=== PATIENT | female | born 1950 | race Caucasian/White ===

== ENCOUNTER → 2024-05-27 08:15 | Outpatient (REF) | payer OTHER, SELFPAY | LOC: PAVMRI 08:15 | PROVIDERS: ATTENDING PHYSICIAN Psychiatry & Neurology Neurology; FAMILY PHYSICIAN General Practice | DX: R27.0 Ataxia, unspecified (principal) | CPT/HCPCS: 70551 ==

== ENCOUNTER 2025-09-02 19:28 | Inpatient (IN) | payer OTHER, SELFPAY ==
[2025-09-02] VITALS (7 sets, daily range): BP systolic 98–123; BP diastolic 67–84; BMI 26.7
[2025-09-02 17:16] LABS: Hematocrit 39.0 % (37.0-47.0); Hemoglobin 13.1 g/dL (12.0-16.0); Mean Corp Hgb Conc. 33.6 g/dL (33.0-37.0); Mean Corpuscular Volume 97.3 fL (81.0-99.0); Nucleated Red Blood Cells % 0 %; Platelet Count 245 10^3/uL (130-400); Red Cell Dist. Width 13.0 % (11.5-14.5)
[2025-09-02 17:28] LABS: ALT (SGPT) 24 U/L (0-35); AST (SGOT) 32 U/L (14-36); Albumin 4.7 g/dl (3.5-5.0); Alkaline Phosphatase 85 U/L (38-126); Blood Urea Nitrogen 24 mg/dl (7-17); Calcium 9.8 mg/dl (8.4-10.2); Carbon Dioxide 20 mmol/L (22-30); Chloride 109 mmol/L (98-107); Glucose 123 mg/dl (70-99); Potassium 4.3 mmol/L (3.5-5.1); Sodium 137 mmol/L (135-145); Total Protein 7.3 g/dl (6.3-8.2); eGFR > 60.00
[2025-09-02 17:38] LABS: Troponin I 1.560 ng/ml
--- NOTE | 2025-09-02 18:07 | ED.GENMED ---
History of Present Illness
General
Chief Complaint: Cardiac Symptoms
Source: patient and records
Exam Limitations: none
Time Seen by Provider: 09/02/25 17:53
Nursing documentation reviewed up to this point in time: agreed with
History of Present Illness
History of Present Illness:
74-year-old female history of hypertension hypothyroidism migraines tachycardia no history of CAD, followed by cardiology Dr Augustin
Over the night she developed diaphoresis woke up in a sweat, proceeded to have pressure across to her shoulders, into her left arm symptoms are worse with exertion going up stairs, better with rest currently chest pain-free
Past History
Past History
ED Past Medical History: HTN, Hypercholesterolemia, Hypothyroidism and Other (Migraines ); Negative CAD
ED Past Surgical History: None; Negative Cardiac
Social History
Tobacco: Non-smoker
Alcohol: None
Drug: None
Personal:
Living: with family
Employment: Retired
Family History
Family History: CAD; Negative Early CAD
Review of Systems
Review of Systems
All Other Systems: Not applicable
Constitutional: Reports fatigue; Denies fever
Cardiac: Reports chest pain and diaphoresis; Denies palpitations
ABD/GI: Denies abdominal pain, nausea or vomiting
Phy Exam
Physical Exam
Physical Exam:
Physical Exam
General: 74-year-old female nontoxic
Neck: No jaundice
Heart: s1/s2 regular rate and rhythm, no murmur. equal radial pulses.
Lungs: Faint crackles
Abdomen: Nontender
Neuro: alert and oriented. no focal neurological deficits
Skin: no rash
Psychiatric: well kept. interactive and cooperative
Extremities: Nonpitting edema
Course
Orders/Labs/Results
Orders:
Orders
09/02/25 16:54
EKG [Electrocardiogram (*1)] Urgent
Reason for Study: Chest Pain
EKG- Treatment ONCE
09/02/25 16:59
Complete Blood Count/With Diff Urgent
Comprehensive Metabolic Panel Urgent
NT-proBNP Urgent
Comment: ADD ON
Troponin I Urgent
09/02/25 18:00
Heparin 4,000 units IV NOW STA
Heparin 00903 Units/250 ml 25,000 units in 250 ml IV PER PROTOCOL
Weight to be used for heparin protocol in kilograms (kg):: 68.3
Protocol:: Cardiac Tx/Acute Coronary
PTT Goal Range to be used:: PTT 73 to 111 seconds
Order type:: Initial
INITIAL Infusion Dose (UNITS/KG/hr) & then follow protocol:: 12 units/kg/hr
Infusion Dose in UNITS/hr & then follow protocol (UNITS/hr):: 800
INFUSION RATE in mL/hr & then follow protocol (mL/hr):: 8
PTT less than or equal to 64 seconds:: Increase rate by 200 units/hr (+ 2 mL/hr)
PTT 64.1 to 72.9 seconds:: Increase rate by 100 units/hr (+ 1 mL/hr)
PTT 73 to 111 seconds:: Target Range. No change in rate.
PTT 111.1 to 130.9 seconds:: Decrease rate by 100 units/hr (- 1 mL/hr)
PTT 131 to 199.9 seconds:: HOLD for 1 hr. Then decrease rate by 200 units/hr (- 2 mL/hr)
PTT greater than or equal to 200 seconds:: HOLD for 2 hrs & Notify Provider. Then decrease by 200 units/hr (-
2 mL/hr)
Lab follow-up:: Each change, PTT q6h until 2 consecutive are therapeutic. Then PTT
daily.
Nursing to Place Non Medication Order As Directed
Physician Order: PTT 6 hours after initial start of Heparin infusion
09/02/25 18:01
Add On- LAB Urgent
Tests Added?: pBNP
Aspirin 325 mg PO NOW STA
CR Chest Portable - 1 View Urgent
Comment:
Reason For Exam: cp sob
Reason Study Needs to be Portable: Patient Unstable
09/02/25 18:02
Metoprolol [Lopressor] 2.5 mg IV NOW STA
09/02/25 18:11
PTT Urgent
Comment: Obtain baseline before beginning heparin infusion if not already collected
Abnormal Lab Results
09/02/25
16:59
WBC 12.2 H 10^3/uL
(4.8-10.8)
RBC 4.01 L 10^6/uL
(4.20-5.40)
MCH 32.7 H pg
(27.0-31.0)
Abs Immat Gran (auto) 0.1 H 10^3/uL
(0-0.05)
Absolute Neuts (auto) 10.3 H 10^3/uL
(1.4-6.5)
Absolute Lymphs (auto) 1.1 L 10^3/uL
(1.2-3.4)
Absolute Monos (auto) 0.7 H 10^3/uL
(0.1-0.6)
Neutrophils % 84.2 H %
(42.2-75.2)
Lymphocytes % 9.2 L %
(20.5-51.1)
Chloride 109 H mmol/L
(98-107)
Carbon Dioxide 20 L mmol/L
(22-30)
BUN 24 H mg/dl
(7-17)
Glucose 123 H mg/dl
(70-99)
Troponin I 1.560 H* ng/ml
09/02/25 16:59
09/02/25 16:59
Vital Signs
Initial and Last Documented VS:
Initial Vital Signs
Temp Pulse Resp BP Pulse Ox
98.3 F 112 16 106/68 95
09/02/25 16:53 09/02/25 16:53 09/02/25 16:53 09/02/25 16:53 09/02/25 16:53
Last Documented Vital Signs
Temp Pulse Resp BP Pulse Ox
98.3 F 97 16 106/68 96
09/02/25 16:53 09/02/25 18:00 09/02/25 18:00 09/02/25 16:53 09/02/25 18:08
MDM/Problems Addressed
Differential Diagnosis Includes:
ACS, unstable angina less likely PE or dissection
MDM/Problems Addressed:
Chest pain shortness of breath diaphoresis
Chronic conditions affecting care: HTN
Acute Exacerbation and/or Progression of Chronic Illness: HTN
*Radiology
Radiology exam reviewed: preliminary read by ED provider
*Pulse Oximetry
SaO2: 96
Oxygen Mode of Delivery: Room air
Patient hypoxic: no
*EKG
Interpreted by ED Provider?: Yes
Interpretation: abnormal
Comparison EKG: no comparison EKG present
Heart Rate: 102
Rate: tachycardiac
Rhythm: sinus
Ischemia: non-specific ST changes
*Game Developer Interpretation
Rate: tachycardiac
Interpretation: abnormal
Heart Rate: 100
Rhythm: sinus
*Critical Care Note
Total Time (30-74mins, 75-104mins- exclusive of procedures): 32
Update Note
Update Note:
6:10 PM, patient chest pain-free states she only is having symptoms with exertion, message sent to cardiology and hospitalist, started on heparin
ED Attending Note
-
Portions of this chart may have been created with voice recognition software.� Occasional wrong word or��sound alike� substitutions may have occurred due to the inherent limitations of voice recognition software.
Discharge Plan
Departure
Patient Disposition: Admit
Date of Disposition: 09/02/25
Time of Disposition: 18:17
Admit to: IVU
Presentation/result/management discussed w/ accepting MD/DO: Hospitalist
Patient with high blood pressure during this ER visit?: No
Condition: Fair
Discharge Problem:
ACS (acute coronary syndrome)
Prescriptions:
No Action
omeprazole magnesium [Prilosec OTC] 20 MG tablet,delayed release (DR/EC)
20 mg PO DAILY Qty: 20 0RF
acetaminophen [Tylenol] 325 mg Tablet
650 mg PO Q4H PRN (Reason: MILD PAIN)
atorvastatin 20 mg Tablet
20 mg PO DAILY
diltiazem HCl 240 mg Capsule,Extended Release 24 Hr
240 mg PO DAILY
topiramate 25 mg Tablet
75 mg PO BID
Theragen Tablet
1 tab PO DAILY
amitriptyline 50 mg Tablet
75 mg PO QPM
levothyroxine 125 mcg Tablet
125 mcg PO DAILY
estradiol 0.01 % (0.1 mg/gram) Cream
1 appful VAGINAL MOWEFR
aliskiren [Tekturna] 150 mg Tablet
150 mg PO DAILY
aspirin 81 mg Tablet
81 mg PO DAILY
Interventions
Interventions:
*Risk Screen - Suicide Last Done: 09/02/25 17:39
*General Assessment Last Done: 09/02/25 18:05
*Neglect/Abuse Screening Last Done: 09/02/25 17:39
[facility] Fall Risk Assessment Tool Last Done: 09/02/25 17:59
Discharge Date and Time
Print Language: BRUNEIAN
[2025-09-02] MEDS: ASPIRIN 325 MG PO (18:18)
[2025-09-02] MEDS: HEPARIN 4000 UNITS IV (18:19)
[2025-09-02] MEDS: HEPARIN 25000 UNITS/250 ML IV (18:24)
[2025-09-02 18:26] LABS: APTT 28.4 Sec (23.4-35.0)
--- NOTE | 2025-09-02 18:33 | HPS.HSE ---
Family Physician
-
Family Physician:
Chief Complaint
-
Bilateral shoulder pain to chest with diaphoresis
History of Present Illness
74-year-old female complaining of waking up at 430 this morning after attempting to get dressed developed posterior bilateral shoulder blade pain radiating to both arms and chest with diaphoresis. She reports when she attempted to get up and walk
she felt like she was going to pass out. Symptoms persisted today so she kept sitting down. She does recall 2 nights ago waking up in a sweat also. She came to ER for evaluation and was noted to have troponin of 1.56 cardiology was made aware
placement patient on IV heparin drip kept n.p.o. after midnight for cath does have IV contrast dye allergy with tongue swelling. She denies current sore throat, fever, chills, current chest pain, palpitations, cough, shortness of breath, abdominal
pain, nausea, vomiting, diarrhea, urinary symptoms. She has past medical history hypertension, hypothyroidism 2/2 parathyroidectomy, tachycardia, migraines
Medical History
Past Medical History
Past Medical History: Reports Other
Additional Past Medical History:
hypertension
hypothyroidism 2/2 parathyroidectomy
tachycardia
migraines
Past Surgical History: Reports Other
Additional Past Surgical History:
Left meniscus repair
Parathyroidectomy
Social History
Tobacco: Non-smoker
Alcohol: None
Drug: None
Personal:
Living: With Family
Employment: Retired
Family History
Family History: Not pertinent
Allergies / Home Medications
Allergies reflects when Allergies were last updated in [email or web address].
Home Medications with original date entered in [email or web address]
Allergy/Medication List:
Allergies
Allergy/AdvReac Type Severity Reaction Status Date / Time
caffeine (From Excedrin Allergy Shortness Verified 09/02/25 18:04
Migraine) of Breath
carbamazepine (From Tegretol) Allergy Hives Verified 09/02/25 18:04
ciprofloxacin (From Cipro) Allergy Unknown Verified 09/02/25 18:04
ciprofloxacin HCl (From Allergy severe Verified 09/02/25 18:07
Cipro) gastric
distress
Iodinated Contrast Media (IV Allergy Tongue Verified 09/02/25 18:04
Dye, Iodine Containing) Swelling
iodine (Iodine) Allergy Tongue Verified 09/02/25 18:04
Swelling
ioversol (From Optiray 160) Allergy Tongue Verified 09/02/25 18:04
Swelling
prochlorperazine edisylate Allergy Shortness Verified 09/02/25 18:04
(From Compazine) of Breath
prochlorperazine maleate Allergy Shortness Verified 09/02/25 18:04
(From Compazine) of Breath
Home Medications
omeprazole magnesium 20 mg tablet,delayed release (Prilosec OTC) 20 mg PO DAILY ##20 09/13/19
acetaminophen 325 mg tablet (Tylenol) 650 mg PO Q4H PRN MILD PAIN 09/02/25
aliskiren 150 mg tablet (Tekturna) 150 mg PO DAILY 09/02/25
amitriptyline 50 mg tablet 75 mg PO QPM 09/02/25
aspirin 81 mg tablet 81 mg PO DAILY 09/02/25
atorvastatin 20 mg tablet 20 mg PO DAILY 09/02/25
diltiazem HCl 240 mg capsule,24 hr,extended release 240 mg PO DAILY 09/02/25
estradiol 0.01% (0.1 mg/gram) vaginal cream 1 appful vaginal MOWEFR 09/02/25
levothyroxine 125 mcg tablet 125 mcg PO DAILY 09/02/25
therapeutic multivitamin 1 tab PO DAILY 09/02/25
topiramate 25 mg tablet 75 mg PO BID 09/02/25
Review of Systems
-
History Source: Patient and Family (Has been at bedside)
A 12 point ROS was completed and negative except as noted: Yes
Constitutional: Denies Fever or Chills
EENT: Denies Sore Throat or Runny Nose
Respiratory: Denies Cough or Trouble Breathing
Cardiac: Reports Chest Pain, Diaphoresis and Other (Posterior shoulder pain)
Abdomen/GI: Denies Abdominal Pain, Nausea, Vomiting, Diarrhea, Constipated or Bloody Stools
: Denies Dysuria, Frequency, Flank Pain or Incontinence
Musculoskeletal: Denies Joint Pain or Edema
Skin: Denies Itching or Rash
Neurological: Denies Dizzy or Headache
Endocrine: Reports No Symptoms
Hematologic/Lymphatic: Reports No Symptoms
Psych: Reports Calm
Physical Exam
Vital Signs
Vital Signs
Temp Pulse Resp BP Pulse Ox
98.3 F 97 16 106/68 96
09/02/25 16:53 09/02/25 18:00 09/02/25 18:00 09/02/25 16:53 09/02/25 18:08
Physical Exam
General: No Pain, Fever or Chills
HEENT: NormoCephalic, Anicteric, Moist mucous membranes, PERRLA, [place] Conjunctivae and No Ptosis
Respiratory: Clear; No Wheezes, Rales or Rhonchi
Cardiac: S1/S2 and Regular Rhythm; No Murmur, Rub, Gallop or Peripheral Edema
Breast: Deferred by me
GI: Soft, Non Tender, Non Distended, Normal Bowel Sounds and No Hepatosplenomegaly
Rectal: Deferred by Provider
Genito-urinary: Deferred by me
Musculoskeletal: No Clubbing, No Cyanosis and No Edema
Skin: Warm and Dry; No Rash
Neuro: AO x 3, No Motor Deficits, Nonfocal/grossly intact, Cranial Nerves Intact and No Sensory Deficits; No Slurred Speech, Facial Droop, Tremors or Sedated
Psych: Calm
Laboratory Results
-
09/02/25 16:59
09/02/25 16:59
Laboratory Results
Total Bilirubin 0.3 mg/dl (0.2-1.3) 09/02/25 16:59
AST 32 U/L (14-36) 09/02/25 16:59
ALT 24 U/L (0-35) 09/02/25 16:59
Alkaline Phosphatase 85 U/L (38-126) 09/02/25 16:59
Troponin I 1.560 ng/ml H* 09/02/25 16:59
Data Reviewed
-
Lab Data: Labs Reviewed by me
Impression/Plan
-
Impression/plan:
Admit to IVU
#NSTEMI
Allergy to IODINE with minor oropharynx discomfort possible slight tongue swelling 04/2010 treated in ER
-Dr. Yanez made aware of iodine allergy will speak to Railway Track Plant Operator before premedication before procedure
- Troponin 1.56 will trend
-Aspirin 325 mg given in ER, continue aspirin 81 mg daily
-Continue atorvastatin 20 mg daily
-Lopressor 2.5 mg given in ER
- IV heparin drip
- N.p.o. after midnight for cath at 7 AM
- Consult cardiology Dr. Yanez aware
-Check 2D echo
- Check lipid profile, HgbA1c
Will premedicate according to Dr. Schrader with prednisone 40 mg now, Prednisone 40 mg at 1 AM, prednisone 40 mg at 6 AM along with Benadryl 50 mg at 6 AM
EKG: Sinus rhythm first-degree AV block 100 bpm, ST abnormality 2, 3 aVF, QTc B428 MS
Mild hypotension/HTN�benign
BP 106/68
-Hold Tekturna 150 mg daily with hold parameter
- Hold Cardizem 240 mg daily
#History of tachycardia
September 2019 had Holter monitor show 21% time heart rate >100
HOLD Cardizem 240 mg due to mild hypotension daily
#HypoThyroidism status post parathyroidectomy
TSH with free T4 reflex
Continue levothyroxine 125 mcg p.o. daily
#Migraine headaches no current migraine
Continue Topamax 75 mg twice daily
#GERD
Continue Prilosec 20 mg daily
DVT prophylaxis
Patient on IV heparin drip
Full code
--- NOTE | 2025-09-02 19:00 | CON.CAR ---
Consultation
Consultation Request
Date/Time Consultation Requested: 09/02/25
Date/Time Consultation Performed: 09/02/25
Requesting Provider: Dr Lagos
Performing Provider: Dr Yanez (primary Dr Nguyen)
Reason for Consultation: chest pain
Medical History
-
Chief Complaint: chest pain
History of Present Illness:
74-year-old female with a past medical history of inappropriate sinus tachycardia, hypertension, hyperlipidemia, migraines presents for evaluation of chest pain. She was in her usual state of health until 2 nights ago when she woke up diaphoretic
from rest. She states she does have intermittent episodes like this for unclear reasons. Then this morning she began to get ready for the day and noted palpitations which is not unusual for her. But as she began to get more ready she began to
have bilateral heaviness in her shoulders. If she rested it went away. This began to include a mid substernal chest pressure in addition to the heaviness in her shoulders. Again this only happened whenever she got up to get ready. By the time
she was ready to come to the hospital she could not even walk up a flight of stairs without it coming on. At rest she has no symptoms.
Past Medical History
Past Medical History: HTN, Hypercholesterolemia and Other (migraines, trigeminal facial neuralgia)
Past Surgical History: Other (Parathyroidectomy)
Social History
Tobacco: Non-Smoker
Family History
Family History: Reviewed & Not Pertinent
Allergies / Home Medications
Allergy/AdvReac Type Severity Reaction Status Date / Time
caffeine (From Excedrin Allergy Shortness Verified 09/02/25 18:04
Migraine) of Breath
carbamazepine (From Tegretol) Allergy Hives Verified 09/02/25 18:04
ciprofloxacin (From Cipro) Allergy Unknown Verified 09/02/25 18:04
ciprofloxacin HCl (From Allergy severe Verified 09/02/25 18:07
Cipro) gastric
distress
Iodinated Contrast Media (IV Allergy Tongue Verified 09/02/25 18:04
Dye, Iodine Containing) Swelling
iodine (Iodine) Allergy Tongue Verified 09/02/25 18:04
Swelling
ioversol (From Optiray 160) Allergy Tongue Verified 09/02/25 18:04
Swelling
prochlorperazine edisylate Allergy Shortness Verified 09/02/25 18:04
(From Compazine) of Breath
prochlorperazine maleate Allergy Shortness Verified 09/02/25 18:04
(From Compazine) of Breath
�Medication �Instructions �Recorded �Confirmed �Type
omeprazole magnesium 20 mg 20 mg PO DAILY ##20 09/13/19 09/02/25 Rx
tablet,delayed release (Prilosec
OTC)
acetaminophen 325 mg tablet 650 mg PO Q4H PRN MILD PAIN 09/02/25 09/02/25 History
(Tylenol)
aliskiren 150 mg tablet (Tekturna) 150 mg PO DAILY 09/02/25 09/02/25 History
amitriptyline 50 mg tablet 75 mg PO QPM 09/02/25 09/02/25 History
aspirin 81 mg tablet 81 mg PO DAILY 09/02/25 09/02/25 History
atorvastatin 20 mg tablet 20 mg PO DAILY 09/02/25 09/02/25 History
diltiazem HCl 240 mg capsule,24 240 mg PO DAILY 09/02/25 09/02/25 History
hr,extended release
estradiol 0.01% (0.1 mg/gram) 1 appful vaginal MOWEFR 09/02/25 09/02/25 History
vaginal cream
levothyroxine 125 mcg tablet 125 mcg PO DAILY 09/02/25 09/02/25 History
therapeutic multivitamin 1 tab PO DAILY 09/02/25 09/02/25 History
topiramate 25 mg tablet 75 mg PO BID 09/02/25 09/02/25 History
Review of Systems
-
All other systems: Negative unless noted
Physical Exam
Vital Signs
Temp Pulse Resp BP Pulse Ox
98.3 F 97 16 106/68 96
09/02/25 16:53 09/02/25 18:00 09/02/25 18:00 09/02/25 16:53 09/02/25 18:08
Lab Results
09/02/25 16:59
09/02/25 16:59
Troponin I 1.560 ng/ml H* 09/02/25 16:59
Gvk-A-Zwwiygjfkpx Pept 213 pg/ml 09/02/25 16:59
Physical Exam
General: Well Developed and Well Nourished
HEENT: Normocephalic
Respiratory: Clear; Negative Wheezes, Crackles or Rhonchi
Cardiac: S1/S2 and Regular Rhythm; Negative Murmur, Rub or Peripheral Edema
GI: Soft, Non Tender and Non Distended
Genito-urinary: No Costovertebral Tender
Musculoskeletal: No Clubbing, No Cyanosis and No Edema
Neuro: AO x 3
Impression / Plan
-
NSTEMI:
-this is a threat to life
-current cp free
-asa and hep gtt with intensive monitoring
-trend trop, currently 1.56
-serial ecg
-high dose statin, check lipid profile
-echo tomorrow
-bb when able
-npo after midnight for cath tomorrow
-will need pretreatment for contrast allergy
IAST: typicllay on ccb, given nstemi transition to bb
HTN; hold typically therapy, transition to OMT as able
HLD: intensify statin
Data:
Transthoracic echocardiogram (06/06/2023): LVEF 60-65% no regional wall motion abnormalities, normal diastolic function; aortic sclerosis without stenosis; trace tricuspid regurgitation, estimated PAP 24 mmHg.
Lexiscan Nuclear Stress Test (06/08/2023): Normal sestamibi perfusion imaging.
Data Reviewed
-
EKG: Tracing Personally Visualized and interpreted (NSR with primary av conduction delay. Nonspecific st wave change, no change from prior)
Radiology: Image Personally Visualized and interpreted (no pulm edema, no effusion normal heart size)
Labs: Labs Reviewed by me (trop 1.56, probnp 213)
--- NOTE | 2025-09-02 19:33 | W.PN.UPDATE ---
Update Note
Progress Note Update
This is an addendum to H&P written by PATIENT ACCOUNT SPECIALIST Jihan Iyer
I saw and examined the patient.
The PATIENT ACCOUNT SPECIALIST's note was reviewed and I agree with the note.
Comment:
Ms. Nivia Chacko is a 74 yo woman with hx essential HTN, HLD, migraines presents to the ER with bilateral shoulder pain and diaphoresis while getting dressed this morning. Similar episode 2 nights ago.
Triage VS: T 98.2, P 112, RR 16, BP 106/68, SpO2 95%
LABS: WBC 12.2, Hg 13.1, PLT 245, Na 137, K+ 4.3, CO2 20, BUn 24, Cr 0.8, Glucose 123
Troponin 1.56
EKG: NSR @ 100, poor R wave progression new from prior, mild t wave flattening
NSTEMI
-admit to IVU
-continue IV heparin gtt
-s/p asa 325mg, continue 81mg PO QD
-increase NAVIGATION TEACHER Statin dosing
-appreciate Cardiology
-NPO after MN for cardiac cath
-TTE
-follow up Lipid panel, A1c
-*patient with contrast allergy. working with Cardiology to discuss timing of steroid prophylaxis administratoin
Hx inappropriate sinus tachycardia
-hold Diltiazem, start Metoprolol if BP tolerates
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
Remainder of plan per PATIENT ACCOUNT SPECIALIST note
76 minutes spent on patient care
[2025-09-02 20:52] LABS: Troponin I 2.290 ng/ml
[2025-09-02] MEDS: DELTASONE 40 MG PO (21:29)
[2025-09-02] MEDS: TOPAMAX 75 MG PO (22:06)
--- NOTE | 2025-09-02 23:28 | PTCARENOTE ---
Rec'd pt as admission from ED. Pt AAO*3, VSS, and SR with 1st hb on tele monitor. pt with heparin infusion as ordered. Pt denies any pain or discomfort. Pt NPO after midnight and now resting with call vuong in reach. See MAR and flowchart for
full pt care and assessment.
[2025-09-03] VITALS (23 sets, daily range): BP systolic 84–108; BP diastolic 54–71; PULSE 108; O2SAT 98; BMI 26.7
[2025-09-03 01:35] LABS: Hematocrit 37.6 % (37.0-47.0); Hemoglobin 12.8 g/dL (12.0-16.0); Mean Corp Hgb Conc. 34.0 g/dL (33.0-37.0); Mean Corpuscular Volume 93.5 fL (81.0-99.0); Nucleated Red Blood Cells % 0 %; Platelet Count 224 10^3/uL (130-400); Red Cell Dist. Width 13.2 % (11.5-14.5)
[2025-09-03] MEDS: DELTASONE 40 MG PO ×2 (01:41→05:54)
[2025-09-03 01:48] LABS: APTT 81.6 Sec (23.4-35.0)
[2025-09-03 01:58] LABS: ALT (SGPT) 25 U/L (0-35); AST (SGOT) 41 U/L (14-36); Albumin 4.2 g/dl (3.5-5.0); Alkaline Phosphatase 91 U/L (38-126); Blood Urea Nitrogen 24 mg/dl (7-17); Calcium 9.3 mg/dl (8.4-10.2); Carbon Dioxide 16 mmol/L (22-30); Chloride 112 mmol/L (98-107); Estimated Creatinine Clearance 64 ml/min; Glucose 144 mg/dl (70-99); Magnesium 2.2 mg/dl (1.6-2.3); Potassium 4.0 mmol/L (3.5-5.1); Sodium 138 mmol/L (135-145); Total Protein 6.7 g/dl (6.3-8.2); Very Low Density Lipoprotein 7 mg/dl (0-30); eGFR > 60.00
[2025-09-03 02:07] LABS: HDL Cholesterol 132 mg/dl; LDL Cholesterol, Calculated 52 mg/dl
[2025-09-03 02:11] LABS: Troponin I 2.100 ng/ml
[2025-09-03] MEDS: SYNTHROID 125 MCG PO (05:54)
[2025-09-03] MEDS: BENADRYL 50 MG PO (05:54)
--- NOTE | 2025-09-03 07:20 | PTCARENOTE ---
Report called to the feed mill lab technician
--- NOTE | 2025-09-03 07:58 | ITS.CL.PN ---
Clothes Ironer - Procedure Note
Procedure
Procedure Note:
CARDIAC CATHETERIZATION REPORT
Date of Procedure: 09/03/2025
Referring: Dr. Ivonne Yanez MD
Indication: NSTEMI
PROCEDURE(S)
1. left heart catheterization
2. coronary angiography
ACCESS: 6F right radial artery (closure: radial band)
CATHETERS
1. 6F JR4
2. 6F JL3.5
MODERATE SEDATION: 25 minutes of moderate sedation was utilized. An independent medical services assistant was present to assist with and help manage the patient's level of consciousness and physiologic status.
HEMODYNAMIC DATA
LV 121/15 (EDP 20) mmHg
AO 94/64 (mean 76) mmHg
CORONARY ANGIOGRAPHY
Dominance: right
LM: large, normal
LAD: large vessel giving rise to a small D1/ramus and large branching D2. There are trivial luminal irregularities only including mild ostial narrowing of the small D1.
LCx: gives rise to a very early branching large OM1 with the continuation of the true LCx giving off a small LPL branch. The ostial LCx has an angulated takeoff from the LM and there is ~30% ostial narrowing with otherwise trivial luminal
irregularities only.
RCA: large vessel giving rise to a large RPDA, small RPL1, and moderate caliber RPL2. There is no epicardial CAD.
RADIATION: dose 181 mGy; DAP 14 Gy*cm2; fluoroscopy time 2.3 min
CONCLUSIONS
1. non obstructive coronary artery disease in a right dominant system
2. moderate pullback gradient across the aortic valve (~27 mmHg) with moderately elevated LV filling pressure (LVEDP 20 mmHg)
RECOMMENDATIONS
1. TTE to elucidate etiology of pullback gradient and inform possible explanation for [place]. If not clear etiology identified from TTE, consider outpatient cMRI.
2. primary prevention of coronary artery disease with high intensity statin. Reasonable to continue baby ASA for now pending above workup.
3. start low dose metoprolol, further GDMT pending TTE
Copy to: Dr. Aidan Nguyen MD (otr tanker truck driver); Dr. Gabbi Gan DO (PCP)
Signed: Ramiro Lovett MD, PhD
--- NOTE | 2025-09-03 08:17 | PTCARENOTE ---
Patient received from the labeling strategist. Right radial band intact with 9 cc of air. POX 97% on right hand. VSS, denies pain, NSR 90's, call vuong in reach
--- NOTE | 2025-09-03 09:10 | CM ---
Reviewed chart. Met with Mrs. Chacko to review discharge plans. She states prior to admission she resides with her spouse in a two story home with one step to enter. She states she has a full flight of steps to get to bedroom/full bathroom. She
states she has a powder room on the first floor. She states prior to admission she is independent with ambulation in the home and uses a walker in the community. She states she is independent with adls. She states she has a walker at home. She
states she has prescription plan and uses [facility]. Medical work-up in progress The discharge plan is to return home with her spouse when medically stable.
[2025-09-03 09:44] LABS: Glycohemoglobin (HgbA1c) 5.8 % (4.0-5.9)
--- NOTE | 2025-09-03 10:14 | CARDSERVDEF ---
Echocardiogram with Definity completed after protocol screening completed. Allergies verified.
Patent IV site: _Left arm accessory cephalic site clear____
IV site flushed with 0.9% NaCl pre and post administration.
Diluted bolus method utilized to enhance visualization of ventricular rogers.
Total volume given: __2.5__ mL
Patient tolerated all procedures well without complications.
[2025-09-03] MEDS: TOPAMAX 75 MG PO ×2 (10:44→21:20)
[2025-09-03] MEDS: PROTONIX 40 MG PO (10:45)
[2025-09-03] MEDS: LOW STRENGTH ASPIRIN 81 MG PO (10:45)
[2025-09-03] MEDS: THERAGRAN 1 TABLET PO (10:45)
[2025-09-03] MEDS: LIPITOR 80 MG PO (10:45)
--- NOTE | 2025-09-03 11:04 | W.PN.HOSP.TC ---
Today's Communication/Plan
-
see a/p
Assessment / Plan
Assessment / Plan
Physical Exam
General: No Pain, Fever or Chills
HEENT: NormoCephalic, Anicteric, Moist mucous membranes, PERRLA
Respiratory: Clear; No Wheezes, Rales or Rhonchi
Cardiac: S1/S2 and Regular Rhythm; No Murmur, Rub, Gallop or Peripheral Edema
GI: Soft, Non Tender, Non Distended, Normal Bowel Sounds and No Hepatosplenomegaly
Musculoskeletal: No Clubbing, No Cyanosis and No Edema
Skin: Warm and Dry; No Rash
Neuro: AO x 3 conversant coherent
Psych: Calm
74F HTN HLD Migraines here for evaluation CP concern for possible NSTEMI
NSTEMI
nonobstructive CAD
Acute HFrEF, Takotsubo cardiomyopathy
-IVU admit
-s/p asa 325mg, continue 81mg PO QD
-statin
-appreciate Cardiology
-s/p cardiac cath 09/03, received pretreatment for contrast allergy, nonobstructive CAD noted, started on low dose Metoprolol
-heparin gtt completed
-troponin trended to peak 2.29
-ECHO appreciated EF 25-30% mild/mod MR TR
-Lipid panel, A1c wnl
Mild hypotension/hx HTN
History of tachycardia
-Hold Tekturna 150 mg daily with hold parameter
- Hold Cardizem 240 mg daily
#HypoThyroidism status post parathyroidectomy
Continue levothyroxine 125 mcg p.o. daily
#Migraine headaches no current migraine
Continue Topamax 75 mg twice daily
#GERD
Continue Prilosec 20 mg daily
DVT prophylaxis
Full code
Discussed with patient and patient's Clark
I spent a total of 50 minutes with the patient or on the floor. More than 50% of this time involved counseling and coordination of care.
Anticipated Discharge: 24 - 48 hours
Subjective/Interval History
-
Date of Service: September 03, 2025
Seen and examined at bedside in no acute distress, resting comfortably in bed. Overall reports feeling well s/p cath. Clark present during evaluation.
Objective Data
-
Labs:
Laboratory Results
09/03/25 09/03/25
01:21 08:00
WBC 12.3 H
Hgb 12.8
Hct 37.6
Plt Count 224
APTT 81.6 H Pending
Sodium 138
Potassium 4.0
Chloride 112 H
Carbon Dioxide 16 L
BUN 24 H
Creatinine 0.7
Glucose 144 H
Calcium 9.3
Total Bilirubin 0.3
AST 41 H
ALT 25
Alkaline Phosphatase 91
Vital Signs:
Vital Signs
Temp Pulse Resp BP Pulse Ox
98.3 F 96 15 95/68 96
09/03/25 08:12 09/03/25 10:00 09/03/25 08:12 09/03/25 10:00 09/03/25 10:00
I&O
09/02/25 09/03/25 09/04/25
06:59 06:59 06:59
Intake Total 500 / 500
Balance 500 / 500
[2025-09-03] MEDS: TOPROL XL 25 MG PO (11:24)
--- NOTE | 2025-09-03 11:28 | PTCARENOTE ---
Patient right radial band removed. BP 98/64, HR 107. Toprol XL 25 mg PO given as ordered
--- NOTE | 2025-09-03 18:35 | ITS.CL.CATH ---
Tow Operator - Catheterization
Cardiac Catheterization
Procedure Report:
LEFT AND RIGHT HEART CATHETERIZATION
Date of Procedure: September 03, 2025
Referring: Rick Roberts MD
PROCEDURES:
1. Left heart catheterization, coronary angiogram.
2. Moderate sedation.
3. Right heart catheterization.
INDICATION: Severe MR on echo with ongoing GERMAN and LE edema
ACCESS: Right radial artery, 6Fr. sheath, under US guidance.
HEMODYNAMICS : (mmHg)
RA (m) : 8, with V waves to 14mmHG
RV (s/d,m) : 42/7, 13
PA (s/d, m) : 34/11, 22
PCWP (m) : 16
PA saturation: 73.2% on room air
AO saturation: 93.6% on room air
RA saturation: 72.5% on room air
Cardiac Output : 7.52 L/min by Ramana calculation
Cardiac Index : 4.21 L/min/m-2 by Ramana calculation
Systemic vascular resistance: 1116 dsc^(-5)
Pulmonary vascular resistance: 1.06 mckeon unit
AO (s/d) : 170/71
LVEDP : 16
No significant gradient across the aortic valve to suggest aortic stenosis.
CORONARY FINDINGS
Dominance: Right
Left Main Trunk (LMT): Large caliber vessel that gives rise to the LAD and LCx branches and is free of angiographic disease.
Left Anterior Descending Artery (LAD): Large caliber vessel that gives off * major diagonal branches as it courses along the anterior inter-ventricular groove before wrapping around the cardiac apex. The LAD and its branches are free of
angiographic disease.
Left Circumflex Artery (LCx): Large caliber vessel that gives off * major obtuse marginal (OM) branches as it courses along the atrio-ventricular (AV) groove. The LCx and its branches are free of angiographic disease.
Right Coronary Artery (RCA): Large caliber dominant vessel that gives rise to the posterior descending artery (RPDA) and postero-lateral ventricular (RPLV) branches distally. The RCA and its branches are free of angiographic disease.
SEDATION: 47 minutes of procedural sedation was utilized. IV Midazolam and IV Fentanyl were administered. An independent medical leader was present to assist with and help manage the patient's level of consciousness and physiologic status.
RADIATION SUMMARY: Fluoro Time (min): 2.7, Dose (mGy): 142.75, DAP (Gy.cm2) : 11.1
Closure Device: There were no immediate intra-procedural complications. The sheath was pulled in the earthmoving labourer and a vascular-band applied to the right wrist for radial artery hemostasis using the patent hemostasis technique.
CONCLUSIONS
1. No obstructive coronary artery disease.
2. Mildly elevated right left-sided filling pressures with high cardiac output.
RECOMMENDATIONS
1. Wean radial band per protocol. Monitor right hand perfusion and for bleeding from the radial site following removal of the vascular-band following trans-radial access.
2. Continue aggressive medical therapy and risk factor modification for secondary CAD prevention.
3. Hydrate with normal saline to mitigate the risk of contrast-induced acute kidney injury.
4. Inpatient admission for workup of volume overload with plan to repeat echocardiogram given symptoms and lower extremity edema's appear to be slightly out of proportion to be explained by invasive hemodynamics to make sure we rule out all
potential noncardiac etiologies before consideration of mitral valve intervention.
Hermelinda Milner MD, FAC, [facility]
Copy to: Rick Roberts MD
[2025-09-03] MEDS: ELAVIL 75 MG PO (19:18)
--- NOTE | 2025-09-03 22:58 | PTCARENOTE ---
Received pt at change of shift resting in bed. SR w/ 1st degree on tele, HR 80's-90's. pt denies any CP or SOB at this time. R radial site C/D/I, no bleeding or hematoma noted at this time. Educated pt on activity restrictions on right wrist, pt
verbalizes understanding. Updated pt on plan of care. Encouraged pt to call RN for assistance ambulating and/or w/ any questions/concerns. Call vuong within reach.
[2025-09-04] VITALS (10 sets, daily range): BP systolic 90–105; BP diastolic 60–70; PULSE 87; O2SAT 97; BMI 26.8
[2025-09-04 04:22] LABS: Hematocrit 37.0 % (37.0-47.0); Hemoglobin 12.6 g/dL (12.0-16.0); Mean Corp Hgb Conc. 34.1 g/dL (33.0-37.0); Mean Corpuscular Volume 95.6 fL (81.0-99.0); Nucleated Red Blood Cells % 0 %; Platelet Count 203 10^3/uL (130-400); Red Cell Dist. Width 13.6 % (11.5-14.5)
[2025-09-04 05:04] LABS: Blood Urea Nitrogen 26 mg/dl (7-17); Calcium 9.1 mg/dl (8.4-10.2); Carbon Dioxide 20 mmol/L (22-30); Chloride 112 mmol/L (98-107); Estimated Creatinine Clearance 65 ml/min; Glucose 105 mg/dl (70-99); Sodium 138 mmol/L (135-145); eGFR > 60.00
[2025-09-04 05:14] LABS: Potassium 4.0 mmol/L (3.5-5.1)
[2025-09-04] MEDS: SYNTHROID 125 MCG PO (05:22)
--- NOTE | 2025-09-04 07:28 | W.PN.HOSP.TC ---
Today's Communication/Plan
-
Cardiac medications optimization as per Cardio
Assessment / Plan
Assessment / Plan
Physical Exam
General: No Pain, Fever or Chills
HEENT: NormoCephalic, Anicteric, Moist mucous membranes, PERRLA
Respiratory: Clear; No Wheezes, Rales or Rhonchi
Cardiac: S1/S2 and Regular Rhythm; No Murmur, Rub, Gallop or Peripheral Edema
GI: Soft, Non Tender, Non Distended, Normal Bowel Sounds and No Hepatosplenomegaly
Musculoskeletal: No Clubbing, No Cyanosis and No Edema
Skin: Warm and Dry; No Rash
Neuro: AO x 3 conversant coherent
Psych: Calm
74F HTN HLD Migraines here for evaluation CP concern for possible NSTEMI ruled out, found to have Takotsubo cardiomyopathy.
nonobstructive CAD
Acute HFrEF, Takotsubo cardiomyopathy
Troponin elevation 2/2 nonischemic myocardial injury
-IVU admit
-s/p asa 325mg, continue 81mg PO QD
-statin
-Cardio eval appreciated
-s/p cardiac cath 09/03, received pretreatment for contrast allergy, nonobstructive CAD noted, started on low dose Metoprolol, Lasix 20 mg daily, Farxiga 10 mg daily
-heparin gtt completed
-troponin trended to peak 2.29
-ECHO appreciated EF 25-30% mild/mod MR TR
-Lipid panel, A1c wnl
Mild hypotension/hx HTN
History of tachycardia
-Hold Tekturna 150 mg daily Cardizem 240 mg daily
-started on Metoprolol and Lasix as above
#HypoThyroidism status post parathyroidectomy
Continue levothyroxine 125 mcg p.o. daily
#Migraine headaches no current migraine
Continue Topamax 75 mg twice daily
#GERD
Continue Prilosec 20 mg daily
DVT prophylaxis
Full code
I spent a total of 40 minutes with the patient or on the floor. More than 50% of this time involved counseling and coordination of care.
Anticipated Discharge: 24 - 48 hours
Subjective/Interval History
-
Date of Service: September 04, 2025
no acute distress sitting up comfortably in bed. Overall reports feeling well. Denies new acute issues.
Objective Data
-
Labs:
Laboratory Results
09/04/25
04:09
WBC 8.6
Hgb 12.6
Hct 37.0
Plt Count 203
Sodium 138
Potassium 4.0
Chloride 112 H
Carbon Dioxide 20 L
BUN 26 H
Creatinine 0.7
Glucose 105 H
Calcium 9.1
Vital Signs:
Vital Signs
Temp Pulse Resp BP Pulse Ox
98.7 F 79 18 101/65 97
09/04/25 04:05 09/04/25 05:00 09/04/25 04:05 09/04/25 04:05 09/04/25 04:05
I&O
09/03/25 09/04/25 09/05/25
06:59 06:59 06:59
Intake Total 1220 / 1220
Balance 1220 / 1220
--- NOTE | 2025-09-04 08:50 | W.PN.CD ---
Today's Communication / Plan
-
- Takotsubo cardiomyopathy (EF 25-30%).
- Troponin elevation is secondary to acute nonischemic myocardial injury in the setting of Takotsubo cardiomyopathy.
- GDMT will be limited by low blood pressure.
- Patient with mild volume overload on examination; will see if she can tolerate Lasix 20 mg PO daily--if not daily, perhaps 20 mg M//.
- Patient has been changed from diltiazem to Toprol-XL 25 mg daily; continue.
- Will start Farxiga 10 mg daily.
- Unable to place on ARNI/ACEi or spironolactone.
- Cholesterol is well-controlled; will reduce atorvastatin back to 20 mg daily.
Impression / Plan
-
74-year-old female (known to Dr. Nguyen, her primary Oxygen Equipment Technician) with inappropriate sinus tachycardia, hypertension, hyperlipidemia, hypothyroidism, and migraines presents for evaluation of chest pain. Cardiac enzymes are mildly elevated.
Echocardiogram revealed an LVEF of 25-30%, and findings consistent with Takotsubo cardiomyopathy. Cardiac catheterization subsequently revealed no obstructive coronary artery disease.
Takotsubo cardiomyopathy (EF 25-30%):
- Troponin elevation is secondary to acute nonischemic myocardial injury in the setting of Takotsubo cardiomyopathy.
- GDMT will be limited by low blood pressure.
- Patient with mild volume overload on examination; will see if she can tolerate Lasix 20 mg PO daily--if not daily, perhaps 20 mg M/W/.
- Patient has been changed from diltiazem to Toprol-XL 25 mg daily; continue.
- Will start Farxiga 10 mg daily.
- Unable to place on ARNI/ACEi or spironolactone.
Mild/moderate MR and TR:
- Will follow clinically over time for for progression.
- Lasix as above for now.
IAST: Transitioned from CCB to BB.
HTN: Blood pressure is low; management as documented above.
HLD: Cholesterol is well-controlled; will reduce atorvastatin back to 20 mg daily.
Data:
Transthoracic echocardiogram (06/06/2023): LVEF 60-65% no regional wall motion abnormalities, normal diastolic function; aortic sclerosis without stenosis; trace tricuspid regurgitation, estimated PAP 24 mmHg.
Lexiscan Nuclear Stress Test (06/08/2023): Normal sestamibi perfusion imaging.
Physical Exam
Vital Signs/Labs
Vital Signs
Temp Pulse Resp BP Pulse Ox
98.9 F 84 17 97/67 96
09/04/25 07:38 09/04/25 08:00 09/04/25 07:38 09/04/25 07:16 09/04/25 07:38
09/03/25 09/04/25 09/05/25
06:59 06:59 06:59
Actual Weight 68.4 kg 68.7 kg
09/04/25 04:09
09/04/25 04:09
APTT Cancelled 09/03/25 08:00
Magnesium 2.2 mg/dl (1.6-2.3) 09/03/25 01:21
Triglycerides 38 mg/dl (10-149) 09/03/25 01:21
LDL Cholesterol, Calc 52 mg/dl 09/03/25 01:21
VLDL Cholesterol, Calc 7 mg/dl (0-30) 09/03/25 01:21
HDL Cholesterol 132 mg/dl 09/03/25 01:21
09/02/25
16:59
[id number] Pept 213
LAB Results
09/02/25 09/02/25 09/03/25
16:59 20:09 01:21
Troponin I 1.560 H* 2.290 H* D 2.100 H*
Physical Exam
Constitutional: No acute distress and Comfortable
EENT: Anicteric
Cardiovascular: Rhythm & rate is regular, Pedal edema present (Trace), Systolic murmur present (Soft 2/6) and S1S2 is normal
Respiratory: Respiratory effort normal and Rhonchi Present (Mild bibasilar)
GI: Soft and Non tender
Neuro/Psych: AO x 3
Other: Skin (Warm, dry, intact)
Data Reviewed
-
Date of Service: September 04, 2025
EKG: Tracing Personally Visualized and interpreted (Telemetry: Sinus rhythm)
Echo: Report Reviewed by me (EF 25-30%, Takotsubo cardiomyopathy; mild to moderate MR/TR.)
X-Ray/CT/US/MRI/NUC/PET: Report Reviewed by me (Cardiac catheterization 09/03/2025: No obstructive CAD.)
Labs: Labs Reviewed by me
--- NOTE | 2025-09-04 09:21 | PTCARENOTE ---
Assumed care of pt from prev nsg shift; Pt AAOx3 & denies CP or SOB. Pt's VSS w/HR in the 80's and BP 97/67 this AM. Pt is SR on telemetry monitoring. Pt w/R radial site w/dressing C/D/I & no signs or symptoms of bleeding or hematoma. Pt w/call vuong
within reach & no addtl needs at this time. Plan of care ongoing.
[2025-09-04] MEDS: LOW STRENGTH ASPIRIN 81 MG PO (09:52)
[2025-09-04] MEDS: THERAGRAN 1 TABLET PO (09:53)
[2025-09-04] MEDS: TOPROL XL 25 MG PO (09:53)
[2025-09-04] MEDS: TOPAMAX 75 MG PO ×2 (09:53→19:49)
[2025-09-04] MEDS: LIPITOR 80 MG PO (09:53)
[2025-09-04] MEDS: PROTONIX 40 MG PO (09:53)
[2025-09-04] MEDS: FARXIGA 10 MG PO (09:55)
--- NOTE | 2025-09-04 10:18 | CM ---
Reviewed chart. Met with Mrs. Chacko to review discharge plans. She states she is feeling well and maybe able to go home soon. Telephone call to her insurance to check on co-pay for Farxiga 10 mg po daily. Her co-pay is $140.00 a month. She is
aware that she will have a deductible that has to be met next year. She is also aware the Farxiga will go generic next December. Reviewed Good Rx coupon if the generic is not on her formulary plan for next year. She is agreeable to the co-pay. Prior
to admission she resides with her spouse in a two story home with one step to enter. She has a full flight of steps to get to bedroom/full bathroom. She has a powder room on the first floor. Prior to admission she is independent with ambulation in
the home and uses a walker in the community. She is independent with adls. She has a walker at home. She has prescription plan and uses [facility]. Medical work-up in progress The discharge plan is to return home with her spouse when
medically stable.
[2025-09-04] MEDS: ELAVIL 75 MG PO (18:25)
[2025-09-04] MEDS: LIPITOR 20 MG PO (18:25)
[2025-09-05 04:16] VITALS: BP 115/75
[2025-09-05] MEDS: TYLENOL 650 MG PO (04:20)
[2025-09-05] MEDS: SYNTHROID 125 MCG PO (04:20)
[2025-09-05 05:41] LABS: Hematocrit 39.2 % (37.0-47.0); Hemoglobin 13.1 g/dL (12.0-16.0); Mean Corp Hgb Conc. 33.4 g/dL (33.0-37.0); Mean Corpuscular Volume 96.8 fL (81.0-99.0); Nucleated Red Blood Cells % 0 %; Platelet Count 174 10^3/uL (130-400); Red Cell Dist. Width 13.6 % (11.5-14.5)
[2025-09-05 06:00] VITALS: BMI 26.7
--- NOTE | 2025-09-05 06:08 | PTCARENOTE ---
Pt NSR on monitor VSS Denies CP. Tylenol PRN given for COONEY. Pt ambulates with x1 assist and RW
--- NOTE | 2025-09-05 07:47 | W.PN.HOSP.TC ---
Today's Communication/Plan
-
discharge
Assessment / Plan
Assessment / Plan
Physical Exam
General: No Pain, Fever or Chills
HEENT: NormoCephalic, Anicteric, Moist mucous membranes, PERRLA
Respiratory: Clear; No Wheezes, Rales or Rhonchi
Cardiac: S1/S2 and Regular Rhythm; No Murmur, Rub, Gallop or Peripheral Edema
GI: Soft, Non Tender, Non Distended, Normal Bowel Sounds and No Hepatosplenomegaly
Musculoskeletal: No Clubbing, No Cyanosis and No Edema
Skin: Warm and Dry; No Rash
Neuro: AO x 3 conversant coherent
Psych: Calm
74F HTN HLD Migraines here for evaluation CP concern for possible NSTEMI ruled out, found to have Takotsubo cardiomyopathy.
nonobstructive CAD
Acute HFrEF, Takotsubo cardiomyopathy
Troponin elevation 2/2 nonischemic myocardial injury
-IVU admit
-s/p asa 325mg, continue 81mg PO QD
-statin
-Cardio eval appreciated
-s/p cardiac cath 09/03, received pretreatment for contrast allergy, nonobstructive CAD noted, started on low dose Metoprolol, Lasix 20 mg MWF, Farxiga 10 mg daily, home Cardizem stopped
-heparin gtt completed
-troponin trended to peak 2.29
-ECHO appreciated EF 25-30% mild/mod MR TR
-Lipid panel, A1c wnl
Mild hypotension/hx HTN
History of tachycardia
-Hold Tekturna 150 mg daily Cardizem 240 mg daily
-started on Metoprolol and Lasix as above
#HypoThyroidism status post parathyroidectomy
home levothyroxine 125 mcg p.o. daily
TSH elevated 10.40 T4 wnl
uncontrolled hypothyroidism, recommend increase in Synthroid to 137 mcg daily, patient has follow up with her Head Banquet Waitress in Sep, shortly after holidays.
#Migraine headaches no current migraine
Continue Topamax 75 mg twice daily
#GERD
Continue Prilosec 20 mg daily
DVT prophylaxis
Full code
Medically stable for discharge home with outpatient follow recommendations.
Total Time Preparing Discharge __40 minutes including examination of the patient, summary of the hospital stay, instructions for continuing care to all relevant caregivers; and preparation of discharge records, prescriptions, and referral
forms if necessary.
Anticipated Discharge: Today
Subjective/Interval History
-
Date of Service: September 05, 2025
Seen and examined at bedside in no acute distress, sitting up comfortably in bed. Overall reports feeling well, denies new acute issues, eager to go home.
Objective Data
-
Labs:
Laboratory Results
09/05/25
04:29
WBC 8.2
Hgb 13.1
Hct 39.2
Plt Count 174
Vital Signs:
Vital Signs
Temp Pulse Resp BP Pulse Ox
98.5 F 93 17 115/75 97
09/05/25 04:15 09/05/25 07:00 09/05/25 04:15 09/05/25 04:16 09/05/25 04:15
I&O
09/04/25 09/05/25 09/06/25
06:59 06:59 06:59
Intake Total 1220 / 1220 1130 / 1130
Balance 1220 / 1220 1130 / 1130
[2025-09-05 08:01] VITALS: BP 115/77
--- NOTE | 2025-09-05 08:30 | PTCARENOTE ---
Assumed care of pt from prev nsg shift; Pt AAOx3 & denies CP or SOB. Pt's VSS w/HR in the 70's-80's and BP 115/77 this AM. Pt is SR w/1st deg AVB on telemetry monitoring. Pt w/R radial site RISK ADVISOR w/no signs or symptoms of bleeding or hematoma. Pt
w/call vuong within reach & no addtl needs at this time. Plan of care ongoing.
[2025-09-05] MEDS: THERAGRAN 1 TABLET PO (08:49)
[2025-09-05] MEDS: FARXIGA 10 MG PO (08:49)
[2025-09-05] MEDS: PROTONIX 40 MG PO (08:49)
[2025-09-05] MEDS: TOPROL XL 25 MG PO (08:49)
[2025-09-05] MEDS: LOW STRENGTH ASPIRIN 81 MG PO (08:49)
[2025-09-05] MEDS: TOPAMAX 75 MG PO (08:49)
--- NOTE | 2025-09-05 09:00 | W.PN.CD ---
Today's Communication / Plan
-
Toprol XL 25mg bid, farxiga 10mg daily, lasix 20mg //
ASA 81mg daily, atorvastatin 20mg daily
diltiazem has been stopped
BMP in one week
discharge planning: follow up is in chart
Impression / Plan
-
74-year-old female (known to Dr. Nguyen, her primary Data Collector) with inappropriate sinus tachycardia, hypertension, hyperlipidemia, hypothyroidism, and migraines presents for evaluation of chest pain. Cardiac enzymes are mildly elevated.
Echocardiogram revealed an LVEF of 25-30%, and findings consistent with Takotsubo cardiomyopathy. Cardiac catheterization subsequently revealed no obstructive coronary artery disease.
Takotsubo cardiomyopathy (EF 25-30%):
- Troponin elevation is secondary to acute nonischemic myocardial injury in the setting of Takotsubo cardiomyopathy.
- GDMT will be limited by low blood pressure.
-- Unable to place on ARNI/ACEi or spironolactone.
- Will start with Toprol XL 25mg bid, farxiga 10mg daily, lasix 20mg //
Mild/moderate MR and TR:
- Will follow clinically over time for for progression.
- Lasix as above for now.
IAST: Transitioned from CCB to BB.
HTN: Blood pressure is low; management as documented above.
HLD: Cholesterol is well-controlled; will reduce atorvastatin back to 20 mg daily.
Data:
Transthoracic echocardiogram (06/06/2023): LVEF 60-65% no regional wall motion abnormalities, normal diastolic function; aortic sclerosis without stenosis; trace tricuspid regurgitation, estimated PAP 24 mmHg.
Lexiscan Nuclear Stress Test (06/08/2023): Normal sestamibi perfusion imaging.
Physical Exam
Vital Signs/Labs
Vital Signs
Temp Pulse Resp BP Pulse Ox
97.8 F 77 18 115/77 97
09/05/25 08:03 09/05/25 08:01 09/05/25 08:03 09/05/25 08:01 09/05/25 08:03
09/04/25 09/05/25 09/06/25
06:59 06:59 06:59
Actual Weight 68.7 kg 68.3 kg
09/05/25 04:29
09/04/25 04:09
APTT Cancelled 09/03/25 08:00
Magnesium 2.2 mg/dl (1.6-2.3) 09/03/25 01:21
Triglycerides 38 mg/dl (10-149) 09/03/25 01:21
LDL Cholesterol, Calc 52 mg/dl 09/03/25 01:21
VLDL Cholesterol, Calc 7 mg/dl (0-30) 09/03/25 01:21
HDL Cholesterol 132 mg/dl 09/03/25 01:21
Free T4 1.01 ng/dl (0.78-2.19) 09/05/25 04:29
09/02/25
16:59
[id number]-Tufcicdsklv Pept 213
LAB Results
09/02/25 09/02/25 09/03/25
16:59 20:09 01:21
Troponin I 1.560 H* 2.290 H* D 2.100 H*
Physical Exam
Constitutional: No acute distress and Comfortable
EENT: Moist mucous membranes
Cardiovascular: Rhythm & rate is regular, Pedal edema is absent, JVD pressure is normal and Systolic murmur present
Respiratory: Respiratory effort normal and Lungs clear to auscul.
Neuro/Psych: AO x 3
Data Reviewed
-
Date of Service: September 05, 2025
EKG: Other (Tele: SR 80s)
Labs: Labs Reviewed by me
[2025-09-05 09:58] VITALS: BP 100/65
[2025-09-05] MEDS: LASIX 20 MG PO (09:58)
--- NOTE | 2025-09-05 10:25 | W.DCSUMMARY ---
Discharge Summary
Discharge Data
Date of Admission: 09/02/25
Date of Discharge: 09/05/25
-
Pending Results: No
Discharge Plan
-
Patient Disposition: Home (Routine Discharge)
Discharge Diagnosis/Procedures: Cardiac catheterization
Takotsubo Cardiomyopathy, Heart Failure with Reduced Ejection Fraction
Uncontrolled Hypothyroidism
Condition: Fair
Diet: Low Cholesterol and 2 Gram Sodium
Activity: As tolerated
Driving Restrictions: As prior to admission
Bathing Restrictions: None
Blood Work: BMP in 1 week with primary care provider
Specialty Instructions: Weigh Daily- Call MD for wt gain/loss 3 lbs overnight/5 lbs in 1 week
Activity Restrictions/Additional Instructions:
Follow up with primary care provider in 1 week of discharge and keep your appointments with Cardiology and Endocrinology.
Cardizem and Aliskiren have been discontinued in favor of Metoprolol for treatment Heart Failure and Hypertension.
Farxiga has been prescribed for treatment Heart Failure.
Synthroid has been increased to 137 mcg daily for better control Hypothyroidism.
Please take medications as prescribed/recommended and follow up with primary care provider and/or other healthcare provider involved in your care for refills and/or further adjustment to your medication regimen as necessary.
Stand Alone Forms: DC Instructions- Cath/EP Lab
Referrals:
Ramiro Barnes DO [Active, Cardiology] - 09/18/25 9:20 am
Gabbi Gan DO [Family Provider, Family Practice] - in one week
Prescriptions:
New
dapagliflozin propanediol 10 mg Tablet
10 mg PO DAILY Qty: 30 0RF
levothyroxine 137 mcg Tablet
137 mcg PO DAILY @ 0600 Qty: 30 0RF
metoprolol succinate 25 mg Tablet Extended Release 24 Hr
25 mg PO BID Qty: 60 0RF
Continued
omeprazole magnesium [Prilosec OTC] 20 MG tablet,delayed release (DR/EC)
20 mg PO DAILY Qty: 20 0RF
acetaminophen [Tylenol] 325 mg Tablet
650 mg PO Q4H PRN (Reason: MILD PAIN)
atorvastatin 20 mg Tablet
20 mg PO DAILY
topiramate 25 mg Tablet
75 mg PO BID
therapeutic multivitamin Tablet
1 tab PO DAILY
amitriptyline 50 mg Tablet
75 mg PO QPM
estradiol 0.01 % (0.1 mg/gram) Cream
1 appful VAGINAL MOWEFR
aspirin 81 mg Tablet
81 mg PO DAILY
Discontinued
diltiazem HCl 240 mg Capsule,Extended Release 24 Hr
240 mg PO DAILY
levothyroxine 125 mcg Tablet
125 mcg PO DAILY
aliskiren [Tekturna] 150 mg Tablet
150 mg PO DAILY
Discharge Orders:
Discharge Patient (As Directed); Ordered 09/05/25
Ordered By: Sangita Petty
Care Plan Goals
Care Plan Goals:
Problem: Readiness for enhanced knowledge related to diagnosis and treatment plan
Goal: Understand your diagnosis and treatment plan needs, including medications if applicable.
Instructions: Know your diagnosis, underlying causes and treatment plan options, including medications if applicable. Consult with your health care team to learn about your diagnosis and treatment plan, including medications if applicable.
Discharge Date and Time
Print Language: MACANESE
[2025-09-05 12:06] VITALS: BP 95/73
[2025-09-05 12:51] LABS: Lipoprotein a (Lp a) 8 mg/dL (<=29)
--- NOTE | 2025-09-05 13:00 | PTCARENOTE ---
Pt's IV line & alarm security or surveillance monitor D/C'd. D/C instructions discussed w/pt. Pt's spouse drove pt home. 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
== END 2025-09-05 13:08 | disposition home or self-care (01) | DRG 286 ==
LOC: IVU 19:28
PROVIDERS: Clinical Nurse Specialist Family Health; Nurse Practitioner Adult Health; Student in an Organized Health Care Education/Training Program; ADMITTING PHYSICIAN Student in an Organized Health Care Education/Training Program; ATTENDING PHYSICIAN Internal Medicine; CONSULT PHYSICIAN Internal Medicine Cardiovascular Disease; EMERGENCY PHYSICIAN Emergency Medicine; FAMILY PHYSICIAN Family Medicine; REFERRING PHYSICIAN Internal Medicine
PROC: 4A023N7 Measurement of Cardiac Sampling and Pressure, Left Heart, Percutaneous Approach (ICD-10-PCS; 2025-09-03)
PROC: B2111ZZ Fluoroscopy of Multiple Coronary Arteries using Low Osmolar Contrast (ICD-10-PCS; 2025-09-03)
DX: I51.81 Takotsubo syndrome (principal); I50.21 Acute systolic (congestive) heart failure; E03.9 Hypothyroidism, unspecified; I11.0 Hypertensive heart disease with heart failure; I25.10 Atherosclerotic heart disease of native coronary artery without angina pectoris; Z91.041 Radiographic dye allergy status; Z79.899 Other long term (current) drug therapy; Z79.890 Hormone replacement therapy; Z79.82 Long term (current) use of aspirin; Z88.1 Allergy status to other antibiotic agents; E78.00 Pure hypercholesterolemia, unspecified
CPT/HCPCS: 71045; 80048; 80053; 80061; 83036; 83605; 83695; 83735; 83880; 84439; 84443; 84484; 85025; 85730; 93005; 93306; 93458; 96374; 96376; 97116; 97162; 99152; 99153; 99291; C1769; Q9957; Q9967